=== PATIENT | male | born 1990 | race Hispanic/Latino ===

== ENCOUNTER 2019-06-15 17:55 | Emergency (ER) | payer SELFPAY ==
--- NOTE | 2019-06-15 19:05 | ER ---
Nurse's Notes [facility] Name: Uday Vasquez Age: 28 yrs Sex: Male : 1990 Arrival Date: 06/15/2019 Time: 17:56 Bed 18 Private MD: Diagnosis: Right Forearm Laceration Presentation: 06/15 18:01 Presenting complaint: Patient states: He was standing on top of the toilet at his aj1 sisters, the toilet was loose and he fell and cut his arm on the glass where her window was broken. Reports laceration occurred at around 1600 yesterday. Laceration noted to right arm, dried blood around laceration. Patient denies pain at this time. Transition of care: patient was not received from another setting of care. Complicating Factors: There are no complicating factors for this patient. Onset of symptoms was June 14, 2019 at 16:00. Risk Assessment: Do you want to hurt yourself or someone else? Patient reports no desire to harm self or others. Initial Sepsis Screen: Does the patient meet any 2 criteria? No. Patient's initial sepsis screen is negative. Does the patient have a suspected source of infection? No. Patient's initial sepsis screen is negative. Care prior to arrival: None. 18:01 Method Of Arrival: Ambulatory aj1 18:01 Acuity: ARELY 4 aj1 Triage Assessment: 18:04 General: Appears in no apparent distress. comfortable, Behavior is calm, cooperative, aj1 appropriate for age. Pain: Denies pain. Neuro: Level of Consciousness is awake, alert, obeys commands, Oriented to person, place, time, situation. Cardiovascular: Patient's skin is warm and dry. Respiratory: Airway is patent Respiratory effort is even, unlabored, Respiratory pattern is regular, symmetrical. GI: No signs and/or symptoms were reported involving the gastrointestinal system. : No signs and/or symptoms were reported regarding the genitourinary system. Derm: Skin is pink, warm \T\ dry. normal. Musculoskeletal: Circulation, motion, and sensation intact. Range of motion: intact in all extremities. Injury Description: Laceration sustained to palmar aspect of right forearm was sustained 1 day ago. Historical: - Allergies: 18:04 No Known Allergies; aj1 - Home Meds: 18:04 None [Active]; aj1 - PMHx: 18:04 None; aj1 - PSHx: 18:04 None; aj1 - Immunization history:: Flu vaccine is not up to date. - Social history:: Smoking status: Patient uses tobacco products, smokes two packs cigarettes per day. - Ebola Screening: : Patient denies travel to an Ebola-affected area in the 21 days before illness onset. Screenin:05 Abuse screen: Denies threats or abuse. Denies injuries from another. Nutritional aj1 screening: No deficits noted. Tuberculosis screening: No symptoms or risk factors identified. 19:08 Fall Risk None identified. Total Saavedra Fall Scale indicates No Risk (0-24 pts). tr5 Assessment: 18:05 Reassessment: see triage assessment. aj1 18:26 Reassessment: Patient states that he is going outside to smoke. Patient was instructed aj1 that this is a non-smoking facility and smoking it not allowed anywhere on the property. Patient states that he doesn't care, he can't just sit in the room, and he is going to go outside to smoke. Patient was instructed that he needed to be in the room because the PA would be in to see him shortly. Patient again states that he doesn't care and he is going outside to smoke. 19:08 Reassessment: Pt left without discharge papers or prescription. Pt stated that he could tr5 not wait any longer due to child. Injury Description: Laceration is clean. Vital Signs: 18:04 BP 136 / 88; Pulse 84; Resp 18; Temp 98.2; Pulse Ox 99% on R/A; Weight 61.23 kg (R); aj1 Height 5 ft. 9 in. (175.26 cm) (R); Pain 0/10; 18:04 Body Mass Index 19.94 (61.23 kg, 175.26 cm) aj1 ED Course: 17:56 Patient arrived in ED. as 17:57 Flavio Tobar PA is PHCP. [facility] 17:57 Tej Rai MD is Attending Physician. [facility] 18:01 Shanice Cruz, CLIFF is Primary Nurse. aj1 18:03 Triage completed. aj1 18:04 Arm band placed on. aj1 18:05 Patient has correct armband on for positive identification. Bed in low position. Call aj1 light in reach. Side rails up X 1. 18:05 No provider procedures requiring assistance completed. aj1 19:01 Wound care: to laceration located on palmar aspect of right forearm was cleaned with aj1 Hibiclens, irrigated with normal saline, dressed with 4X4s, and secured with Kerlix per orders from HERRERA Alcazar, Patient tolerated well. 19:02 Report given to CLIFF Fischer and CLIFF Ramon. aj1 19:08 Patient did not have IV access during this emergency room visit. tr5 Administered Medications: No medications were administered Outcome: 19:03 Discharge ordered by MD. nunez 19:08 Condition: stable tr5 19:10 Patient left the ED. tr5 Signatures: Shanice Cruz RN RN Flavio Jasso PA PA jmm Martinez, Amelia as Rodriguez, Tommie, RN RN tr5 Corrections: (The following items were deleted from the chart) 18:28 18:26 Reassessment: Patient states that he is going outside to smoke. Patient was aj1 instructed that this is a non-smoking facility and smoking it not allowed anywhere on the property. Patient states that he does care, he can't just sit in the room, and he is going to go outside to smoke. Patient was instructed that he needed to be in the room because the PA would be in to see him shortly. Patient again states that he doesn't care and he is going outside to smoke. aj1
--- NOTE | 2019-06-15 19:05 | EDPHYS ---
Physician Documentation [facility] Name: Uday Vasquez Age: 28 yrs Sex: Male : 1990 Arrival Date: 06/15/2019 Time: 17:56 Bed 18 Private MD: ED Physician Tej Rai HPI: 06/15 18:28 This 28 yrs old Male presents to ER via Ambulatory with complaints of jmm Laceration To Arm. 18:28 The patient has a laceration related to: cut on a window. jmm 18:28 Onset: The symptoms/episode began/occurred acutely, 1 day(s) ago. jmm 18:28 Associated signs and symptoms: Pertinent negatives: dizziness, heavy bleeding, loss of jmm consciousness, numbness distal to injury, suspected foreign body. This is a 28 year old male with no chronic medical conditions that presents to the ED with complaints of a laceration which occurred yesterday. Patient was standing on a toilet and fell hitting his arm against a broken window. Patient complains due to ongoing bleeding. Patient is UTD on tetanus immunizations. . Historical: - Allergies: 18:04 No Known Allergies; aj1 - Home Meds: 18:04 None [Active]; aj1 - PMHx: 18:04 None; aj1 - PSHx: 18:04 None; aj1 - Immunization history:: Flu vaccine is not up to date. - Social history:: Smoking status: Patient uses tobacco products, smokes two packs cigarettes per day. - Ebola Screening: : Patient denies travel to an Ebola-affected area in the 21 days before illness onset. ROS: 18:28 Constitutional: Negative for fever, chills, and weight loss, Cardiovascular: Negative jmm for chest pain, palpitations, and edema, Respiratory: Negative for shortness of breath, cough, wheezing, and pleuritic chest pain. 18:28 MS/extremity: Positive for injury or acute deformity, laceration. 18:28 Skin: Positive for laceration(s). 18:28 All other systems are negative. Exam: 18:28 Constitutional: This is a well developed, well nourished patient who is awake, alert, jmm and in no acute distress. Head/Face: atraumatic. Eyes: EOMI, no conjunctival erythema appreciated ENT: Moist Mucus Membranes Neck: Trachea midline, Supple Chest/axilla: Normal chest wall appearance and motion. Cardiovascular: Regular rate and rhythm. No edema appreciated Respiratory: Normal respirations, no respiratory distress appreciated Abdomen/GI: Non distended, soft Back: Normal ROM 18:28 Skin: 3 cm laceration noted to the right forearm, no active bleeding appreciated, FB is not appreciated. 18:28 Neuro: Orientation: is normal, Mentation: is normal, Memory: is normal, Gait: is steady. 18:28 Psych: Behavior/mood is pleasant, cooperative. Vital Signs: 18:04 BP 136 / 88; Pulse 84; Resp 18; Temp 98.2; Pulse Ox 99% on R/A; Weight 61.23 kg (R); aj1 Height 5 ft. 9 in. (175.26 cm) (R); Pain 0/10; 18:04 Body Mass Index 19.94 (61.23 kg, 175.26 cm) aj1 MDM: 18:28 Patient medically screened. [facility] 18:40 Data reviewed: vital signs, EMS record. Counseling: I had a detailed discussion with [facility] the patient and/or guardian regarding: the historical points, exam findings, and any diagnostic results supporting the discharge/admit diagnosis, the need for outpatient follow up, to return to the emergency department if symptoms worsen or persist or if there are any questions or concerns that arise at home. 18:40 ED course: Patient is alert and non toxic in appearance in the ED. Patient refused [facility] wound care other than pressure dressing. Patient given wound infection return precautions. Patient understood and agrees with the plan of care. . 06/15 18:29 Order name: Dressing - Wound; Complete Time: 18:53 [facility] Administered Medications: No medications were administered Disposition: 06/15/19 19:03 Discharged to Home. Impression: Right Forearm Laceration. - Condition is Stable. - Discharge Instructions: Laceration Care, Adult. - Prescriptions for Cephalexin 500 mg Oral Capsule - take 1 capsule by ORAL route every 12 hours for 10 days; 20 capsule. - Medication Reconciliation Form, Thank You Letter, Antibiotic Education, Prescription Opioid Use form. - Follow up: Private Physician; When: 2 - 3 days; Reason: Recheck today's complaints, Continuance of care, Re-evaluation by your physician. Addendum: 06/19/2019 08:40 Co-signature as Attending Physician, Tej Rai MD I agree with the assessment and k dr plan of care. Signatures: Shanice Cruz, RN RN aj1 Tej Rai MD MD [facility] Flavio Tobar PA PA jmm Rodriguez, Tommie, RN RN tr5 Corrections: (The following items were deleted from the chart) 06/15 19:10 19:03 06/15/2019 19:03 Discharged to Home. Impression: Right Forearm Laceration. tr5 Condition is Stable. Forms are Medication Reconciliation Form, Thank You Letter, Antibiotic Education, Prescription Opioid Use. Follow up: Private Physician; When: 2 - 3 days; Reason: Recheck today's complaints, Continuance of care, Re-evaluation by your physician. enrique
[2019-06-15] MEDS ORDERED: LIDOCAINE 1% MPF 30 ML VIAL ONE (20:52)
== END 2019-06-15 19:10 | disposition home or self-care (01) ==
LOC: ER 17:55
DX: S51.811A Laceration without foreign body of right forearm, initial encounter (principal); W01.110A Fall on same level from slipping, tripping and stumbling with subsequent striking against sharp glass, initial encounter; Y93.89 Activity, other specified; Y92.002 Bathroom of unspecified non-institutional (private) residence as the place of occurrence of the external cause; F17.210 Nicotine dependence, cigarettes, uncomplicated
CPT/HCPCS: 99283

== ENCOUNTER 2019-06-15 20:23 | Emergency (ER) | payer SELFPAY ==
--- NOTE | 2019-06-15 21:25 | EDPHYS ---
Physician Documentation [facility] Name: Uday Vasquez Age: 28 yrs Sex: Male : 1990 Arrival Date: 06/15/2019 Time: 20:26 Bed 27 Private MD: ED Physician Rodo Richards HPI: 06/15 21:20 This 28 yrs old Male presents to ER via Ambulatory with complaints of Puncture jmm Wound To Arm. 21:20 The patient or guardian complains of injury, a laceration. Onset: The symptoms/episode jmm began/occurred acutely, 1 day(s) ago. Patient cut his right arm after he fell off a toilet hitting a glass window. Patient is UTD on tetanus immunizations. Historical: - Allergies: 20:40 No Known Allergies; aj1 - Home Meds: 20:40 None [Active]; aj1 - PMHx: 20:40 None; aj1 - PSHx: 20:40 None; aj1 - Immunization history:: Adult Immunizations up to date. - Social history:: Smoking status: Patient uses tobacco products, smokes two packs cigarettes per day. - Ebola Screening: : Patient denies travel to an Ebola-affected area in the 21 days before illness onset. ROS: 21:20 Constitutional: Negative for fever, chills, and weight loss, Cardiovascular: Negative jmm for chest pain, palpitations, and edema, Respiratory: Negative for shortness of breath, cough, wheezing, and pleuritic chest pain. 21:20 MS/extremity: Positive for injury or acute deformity, laceration. 21:20 All other systems are negative. Exam: 21:20 Head/Face: atraumatic. Eyes: EOMI, no conjunctival erythema appreciated ENT: Moist jmm Mucus Membranes Neck: Trachea midline, Supple Chest/axilla: Normal chest wall appearance and motion. Cardiovascular: Regular rate and rhythm. No edema appreciated Respiratory: Normal respirations, no respiratory distress appreciated 21:20 Constitutional: The patient appears in no acute distress, alert, anxious. 21:20 Musculoskeletal/extremity: a 4 and 6 cm laceration noted to the right foream. 4 cm laceration is actively bleeding. 21:20 Skin: 4 and 6 cm laceration noted to the right forearm. 21:20 Neuro: Orientation: is normal, Mentation: is normal, Memory: is normal. 21:20 Psych: Behavior/mood is pleasant, cooperative. Vital Signs: 20:40 BP 147 / 85; Pulse 82; Resp 18; Temp 97.2; Pulse Ox 100% on R/A; Weight 61.23 kg (R); aj1 Height 5 ft. 9 in. (175.26 cm) (R); Pain 0/10; 21:30 BP 126 / 84; Pulse 72; Resp 16; Temp 97.5; Pulse Ox 99% on R/A; Pain 0/10; ch 20:40 Body Mass Index 19.94 (61.23 kg, 175.26 cm) aj1 Laceration: 21:20 Wound Repair of 4cm ( 1.6in ) subcutaneous laceration to right arm. Distal [facility] neuro/vascular/tendon intact. Anesthesia: Local anesthetic administered with 5 mls of 1% lidocaine. Wound prep: Extensive cleansing with betadine by me. Skin closed with 4 4-0 Prolene using simple sutures and sterile technique. Patient tolerated well. 21:20 Wound Repair of 6cm ( 2.4in ) laceration to palmar aspect of right forearm. Distal m neuro/vascular/tendon intact. Wound prep: Extensive cleansing with betadine by me. Skin closed with 5 4-0 Prolene using simple sutures and sterile technique. Patient tolerated well. MDM: 20:51 Patient medically screened. [facility] 21:23 Data reviewed: vital signs, nurses notes. Counseling: I had a detailed discussion with [facility] the patient and/or guardian regarding: the historical points, exam findings, and any diagnostic results supporting the discharge/admit diagnosis, the need for outpatient follow up, to return to the emergency department if symptoms worsen or persist or if there are any questions or concerns that arise at home. ED course: Patient advised of the risk of wound infection. Patient prescribed oral antibiotics and advised to return to the ED if symptoms worsen. Patient understood and agree with the plan of care. . Administered Medications: 20:55 Drug: Lidocaine (1 %) 20 ml {Note: placed at bedside, adminstered by Flavio.} Volume: 20 ch ml; Route: Infiltration; Site: wound; 21:12 Follow up: Response: No adverse reaction ch 21:49 Follow up: Response: No adverse reaction; Pain is decreased ch Disposition: 06/15/19 21:24 Discharged to Home. Impression: Forearm Laceration. - Condition is Stable. - Discharge Instructions: Laceration Care, Adult. - Prescriptions for Bactrim DS 800- 160 mg Oral Tablet - take 1 tablet by ORAL route every 12 hours for 10 days; 20 tablet. - Medication Reconciliation Form, Thank You Letter, Antibiotic Education, Prescription Opioid Use form. - Follow up: Private Physician; When: 1 week; Reason: Recheck today's complaints, Continuance of care, Staple/Suture removal, Re-evaluation by your physician. Signatures: Kaela Duffy, RN RN ch Shanice Cruz RN RN aj1 Flavio Tobar PA PA jmm Corrections: (The following items were deleted from the chart) 21:45 21:24 06/15/2019 21:24 Discharged to Home. Impression: Forearm Laceration. Condition is ch Stable. Forms are Medication Reconciliation Form, Thank You Letter, Antibiotic Education, Prescription Opioid Use. Follow up: Private Physician; When: 1 week; Reason: Recheck today's complaints, Continuance of care, Staple/Suture removal, Re-evaluation by your physician. enrique
--- NOTE | 2019-06-15 21:25 | ER ---
Nurse's Notes [facility] Name: Uday Vasquez Age: 28 yrs Sex: Male : 1990 Arrival Date: 06/15/2019 Time: 20:26 Bed 27 Private MD: Diagnosis: Forearm Laceration Presentation: 06/15 20:39 Presenting complaint: Patient states: He was seen 2 hours ago in this ER for a aj1 laceration he got yesterday at 1600. They dressed the laceration and discharged him but it bleed through the dressing so he came back. Transition of care: patient was not received from another setting of care. Onset of symptoms was June 14, 2019 at 16:00. Risk Assessment: Do you want to hurt yourself or someone else? Patient reports no desire to harm self or others. Initial Sepsis Screen: Does the patient meet any 2 criteria? No. Patient's initial sepsis screen is negative. Does the patient have a suspected source of infection? No. Patient's initial sepsis screen is negative. Care prior to arrival: None. 20:39 Method Of Arrival: Ambulatory [facility] 20:39 Acuity: ARELY 4 aj1 Triage Assessment: 20:40 General: Appears in no apparent distress. comfortable, Behavior is appropriate for age. aj1 Pain: Denies pain. Neuro: Level of Consciousness is awake, alert, obeys commands. Cardiovascular: Patient's skin is warm and dry. Respiratory: Airway is patent Respiratory effort is even, unlabored, Respiratory pattern is regular, symmetrical. Historical: - Allergies: 20:40 No Known Allergies; aj1 - Home Meds: 20:40 None [Active]; aj1 - PMHx: 20:40 None; aj1 - PSHx: 20:40 None; aj1 - Immunization history:: Adult Immunizations up to date. - Social history:: Smoking status: Patient uses tobacco products, smokes two packs cigarettes per day. - Ebola Screening: : Patient denies travel to an Ebola-affected area in the 21 days before illness onset. Screenin:40 Abuse screen: Denies threats or abuse. Denies injuries from another. Nutritional ch screening: No deficits noted. Tuberculosis screening: No symptoms or risk factors identified. Fall Risk None identified. Assessment: 20:40 Reassessment: Patient appears in no apparent distress at this time. Patient and/or ch family updated on plan of care and expected duration. Pain level reassessed. Patient is alert, oriented x 3, equal unlabored respirations, skin warm/dry/pink. Reassessment: pt has anxiety when vinicio goes to numb it, pt tolerates well after verbal reassurance. Vinicio in room suturing now. General: Appears in no apparent distress. comfortable, Behavior is calm, cooperative, appropriate for age. Pain: Complains of pain in palmar aspect of right forearm. Cardiovascular: No deficits noted. Respiratory: No deficits noted. GI: No signs and/or symptoms were reported involving the gastrointestinal system. Derm: Skin is healthy with good turgor, Skin is pink, warm \T\ dry. Injury Description: Laceration sustained to palmar aspect of right forearm is clean, 7.6 to 20 cm long, bleeding moderately, with pulsatile bleeding, pt has two lacerations to forearm, each over 5 cm long. one closest to elbow is bleeding bright red blood when pressure is removed. bleeding controlled with pressure. 21:30 Reassessment: Patient appears in no apparent distress at this time. Patient and/or ch family updated on plan of care and expected duration. Pain level reassessed. Patient is alert, oriented x 3, equal unlabored respirations, skin warm/dry/pink. bleeding controlled, no s/s of distress. wound dressed with non stick gauze and tape. Patient states feeling better. Patient states symptoms have improved. Vital Signs: 20:40 BP 147 / 85; Pulse 82; Resp 18; Temp 97.2; Pulse Ox 100% on R/A; Weight 61.23 kg (R); aj1 Height 5 ft. 9 in. (175.26 cm) (R); Pain 0/10; 21:30 BP 126 / 84; Pulse 72; Resp 16; Temp 97.5; Pulse Ox 99% on R/A; Pain 0/10; 20:40 Body Mass Index 19.94 (61.23 kg, 175.26 cm) aj1 ED Course: 20:26 Patient arrived in ED. ag3 20:40 Triage completed. aj1 20:40 Arm band placed on Patient placed in an exam room. aj1 20:40 Patient has correct armband on for positive identification. Bed in low position. Call light in reach. Side rails up X 1. Door closed. Noise minimized. Warm blanket given. 20:40 Assist provider with laceration repair on palmar aspect of right forearm that was ch between 12.6 to 20 cm using sutures. Set up tray. Performed by Vinicio SILVERMAN Dressed with 4X4s, Kerlix, Neosporin, Patient tolerated well. awaiting Vinicio to finish suturing, then will dress pt wound. Patient did not have IV access during this emergency room visit. 20:45 Vinicio Tobar PA is PHCP. [facility] 20:45 Rodo Richards MD is Attending Physician. [facility] 20:51 Kaela Duffy, RN is Primary Nurse. ch 21:30 No apparent distress. Resting quietly. ch 21:30 Dressings: non-adherent dressing x 2 palmar aspect of right forearm tape. ch Administered Medications: 20:55 Drug: Lidocaine (1 %) 20 ml {Note: placed at bedside, adminstered by Vinicio.} Volume: 20 ch ml; Route: Infiltration; Site: wound; 21:12 Follow up: Response: No adverse reaction ch 21:49 Follow up: Response: No adverse reaction; Pain is decreased Outcome: 21:24 Discharge ordered by . [facility] 21:30 Discharged to home ambulatory, with family. 21:30 Condition: improved 21:30 Discharge instructions given to patient, family, Instructed on discharge instructions, follow up and referral plans. no drinking with medication, medication usage, wound care, Demonstrated understanding of instructions, follow-up care, medications, wound care, Prescriptions given X 1. 21:45 Patient left the ED. ch Signatures: Kaela Duffy, RN RN Shanice Cruz RN RN aj1 Vinicio Tobar PA PA Naye Saenz ag3
== END 2019-06-15 21:45 | disposition home or self-care (01) ==
LOC: ER 20:23
PROC: 0JQG0ZZ Repair Right Lower Arm Subcutaneous Tissue and Fascia, Open Approach (ICD-10-PCS; principal; 2019-06-15)
DX: S51.811D Laceration without foreign body of right forearm, subsequent encounter (principal); W01.110A Fall on same level from slipping, tripping and stumbling with subsequent striking against sharp glass, initial encounter; Y93.89 Activity, other specified; Y92.002 Bathroom of unspecified non-institutional (private) residence as the place of occurrence of the external cause; F17.210 Nicotine dependence, cigarettes, uncomplicated
CPT/HCPCS: 99283